=== PATIENT | male | born 1995 | race Caucasian/White ===

== ENCOUNTER 2017-04-29 02:20 | Emergency (ER) | payer OTHER ==
[~2017-04-29] VITALS: Ht 170.2 cm; Wt 74.8 kg
[2017-04-29 02:25] VITALS: BP 117/75
--- NOTE | 2017-04-29 02:31 | NUR ---
AMBULATED TO ER BED 7
--- NOTE | 2017-04-29 03:01 | NUR ---
Patient being evaluated by at bedside.
--- NOTE | 2017-04-29 03:02 | NUR ---
22Y/M PATIENT PRESENTS TO ED WITH C/O CHEST PAIN X 1WK . PT STATES PAIN TO CHEST AND RADIATES TO LOWER BACK. NO MEDICAL HX. . DENIES N/V/D; SKIN IS PINK/WARM/DRY; AAOX4 WITH EVEN AND STEADY GAIT; LUNGS CLEAR BL; HR EVEN AND REGULAR; PT DENIES ANY FEVER, CP, SOB, OR COUGH AT THIS TIME; PATIENT STATES PAIN OF 7/10 AT THIS TIME; VSS; PATIENT POSITIONED FOR COMFORT; HOB ELEVATED; BEDRAILS UP X2; BED DOWN. ER MD MADE AWARE OF PT STATUS.
[2017-04-29] MEDS ORDERED: KETOROLAC 30 MG/ML VIAL IM ONE (03:05)
[2017-04-29] MEDS ORDERED: ONDANSETRON 4 MG ODT PO ONE (03:05)
[2017-04-29] MEDS ORDERED: ACETAMINOPHEN/CODEINE 300/30MG 1 TAB PO ONE (03:05)
[2017-04-29 05:14] VITALS: BP 117/75
--- NOTE | 2017-04-29 05:14 | NUR ---
Patient discharged with v/s stable. Written and verbal after care instructions given and explained. Patient alert, oriented and verbalized understanding of instructions. Ambulatory with steady gait. All questions addressed prior to discharge. ID band removed. Patient advised to follow up with PMD. Rx of TYLENOL WITH CODEINE, NAPROSYN AND ZOFRAN given. Patient educated on indication of medication including possible reaction and side effects. Opportunity to ask questions provided and answered.
== END 2017-04-29 05:14 | disposition home or self-care (01) ==
LOC: MED 02:20
DX: M79.1 Myalgia (principal); R10.10 Upper abdominal pain, unspecified; Z90.89 Acquired absence of other organs
CPT/HCPCS: 74176; 81002; 96372; 99284; J1885; S0119

== ENCOUNTER 2018-04-29 22:42 | Emergency (ER) | payer OTHER ==
[~2018-04-29] VITALS: Ht 170.2 cm; Wt 76.7 kg
[2018-04-29 23:09] VITALS: BP 118/75
[2018-04-29] MEDS ORDERED: IBUPROFEN 800 MG TAB PO ONE (23:55)
[2018-04-29] MEDS ORDERED: AMOXICILLIN 500 MG CAP PO ONE (23:55)
[2018-04-30 00:30] VITALS: BP 118/70
== END 2018-04-30 00:30 | disposition home or self-care (01) ==
LOC: MED 22:42
DX: J02.9 Acute pharyngitis, unspecified (principal); M79.1 Myalgia; R50.9 Fever, unspecified
CPT/HCPCS: 99283

== ENCOUNTER 2018-11-05 19:51 | Emergency (ER) | payer OTHER ==
[~2018-11-05] VITALS: Ht 170.2 cm; Wt 74.4 kg
[2018-11-05 20:19] VITALS: BP 123/88
--- NOTE | 2018-11-05 20:22 | NUR ---
PT AMBULATED TO LOBBY WITH VSS.
--- NOTE | 2018-11-05 21:06 | NUR ---
PT TO ER BED 11
--- NOTE | 2018-11-05 21:12 | NUR ---
PATIENT PRESENTS TO ED WITH HEADACHE. PT C/O LEFT EAR PAIN, RADIATING TO LEFT EYE AND POSTERIOR TO LEFT SIDE OF THE HEAD. DENIES N/V/D; SKIN IS PINK/WARM/DRY; AAOX4 WITH EVEN AND STEADY GAIT; LUNGS CLEAR BL; HR EVEN AND REGULAR; PT DENIES ANY FEVER, CP, SOB, OR COUGH AT THIS TIME; PATIENT STATES PAIN OF 6/10 AT THIS TIME; VSS; PATIENT POSITIONED FOR COMFORT; HOB ELEVATED; BEDRAILS UP X1; BED DOWN. ER MD MADE AWARE OF PT STATUS. PMH: DENIES RX: DENIES
[2018-11-05] MEDS ORDERED: KETOROLAC 30 MG/ML VIAL IM ONE (23:10)
--- NOTE | 2018-11-05 23:13 | NUR ---
TO CT VIA WC
--- NOTE | 2018-11-05 23:22 | NUR ---
PT BACK FROM CT
[2018-11-06 00:24] VITALS: BP 122/76
--- NOTE | 2018-11-06 00:25 | NUR ---
Patient discharged with v/s stable. Written and verbal after care instructions given and explained. Patient alert, oriented and verbalized understanding of instructions. Ambulatory with steady gait. All questions addressed prior to discharge. ID band removed. Patient advised to follow up with PMD. Rx of NAPROSYN, AMOXICILLIN given. Patient educated on indication of medication including possible reaction and side effects. Opportunity to ask questions provided and answered.
== END 2018-11-06 00:24 | disposition home or self-care (01) ==
LOC: MED 19:51
DX: R51 Headache (principal); J02.9 Acute pharyngitis, unspecified; H57.89 Other specified disorders of eye and adnexa; Z90.49 Acquired absence of other specified parts of digestive tract
CPT/HCPCS: 70450; 96372; 99284; J1885

== ENCOUNTER 2019-05-15 17:00 | Emergency (ER) | payer BC, OTHER ==
[~2019-05-15] VITALS: Ht 170.2 cm; Wt 80.3 kg
[2019-05-15 17:03] VITALS: BP 121/64
--- NOTE | 2019-05-15 17:11 | NUR ---
PT AMBULATED TO ER BED 08
--- NOTE | 2019-05-15 17:20 | NUR ---
24M C/O NAUSEA AND EPIGASTRIC PAIN RADIATING TO LUQ/LLQ 03/23 X5 DAYS. PAIN COMES AND GOES. DENIES V/D. LBM 05/15/19, SOFT. PT DENIES TAKING HOME MEDICATIONS FOR PAIN RELIEF. ACTIVE BS IN ALL QUADRANTS. PT APPEARS COMFORTABLE AT THIS TIME. HX: NONE RX: NONE
--- NOTE | 2019-05-15 17:20 | NUR ---
Note undone in EDM - 05/15/19 at 1757 by [email or web address] 24M C/O NAUSEA AND EPIGASTRIC PAIN RADIATING TO LUQ/LLQ 6/10 X5 DAYS. PAIN COMES AND GOES. DENIES V/D. LBM 05/15/19, SOFT. PT DENIES TAKING HOME MEDICATIONS FOR PAIN RELIEF. ACTIVE BS IN ALL QUADRANTS. PT APPEARS COMFORTABLE AT THIS TIME. HX: NONE RX: NONE
--- NOTE | 2019-05-15 17:23 | NUR ---
XRAY AT BEDSIDE
[2019-05-15] MEDS ORDERED: DICYCLOMINE HCL LIQUID 20 MG, ALUMINUM HYD/MAG/SIMETHICONE 30 ML, LIDOCAINE VISCOUS 2% ... PO ONE ×3 (17:30)
[2019-05-15 18:55] LABS: BASOPHILS # (AUTO) 0.1 K/uL (0.00-0.22); BASOPHILS % (AUTO) 0.9 % (0.0-2.0); EOSINOPHILS # (AUTO) 0.2 K/uL (0-0.4); EOSINOPHILS % (AUTO) 2.5 % (0.0-4.0); HEMATOCRIT 52.6 % (36-52); HEMOGLOBIN 17.8 g/dL (12.0-18.0); LYMPHOCYTES # (AUTO) 1.7 K/uL (2.0-11.5); LYMPHOCYTES % (AUTO) 25.5 % (20.5-51.1); MEAN CORPUSCULAR HEMOGLOBIN 31 pg (27-31); MEAN CORPUSCULAR HGB CONC 34 g/dL (33-37); MEAN CORPUSCULAR VOLUME 90.2 fL (80-94); MONOCYTES # (AUTO) 0.8 K/uL (0.8-1.0); MONOCYTES % (AUTO) 11.7 % (1.7-9.3); NEUTROPHILS % (AUTO) 59.4 % (42.2-75.2); PLATELET COUNT (AUTO) 159 K/uL (140-450); RED BLOOD CELL COUNT(AUTO) 5.83 MIL/uL (4.20-6.10); RED CELL DISTRIBUTION WIDTH 13.8 % (11.6-13.7); WHITE BLOOD COUNT (AUTO) 6.8 K/uL (4.8-10.8)
[2019-05-15 19:05] LABS: CREATININE 0.9 mg/dL (0.7-1.3)
[2019-05-15 19:11] LABS: TOTAL BILIRUBIN 0.6 mg/dL (0.0-1.0)
--- NOTE | 2019-05-15 19:13 | NUR ---
BEDSIDE REPORT RECEIVED FROM RANJANA TERRY. ASSUMED CARE AT THIS TIME.
--- NOTE | 2019-05-15 19:19 | NUR ---
ENDORSED PATIENT TO ALEXANDER CHILEL IN STABLE CONDITION. PT DENIES PAIN AND DISCOMFORT AT THIS TIME
--- NOTE | 2019-05-15 19:30 | NUR ---
US AT BEDSIDE
[2019-05-15 20:04] VITALS: BP 120/79
--- NOTE | 2019-05-15 20:05 | NUR ---
PT LAYING DOWN, VSS. BED IN LOWEST POSTION. WILL CONTINUE TO MONITOR.
--- NOTE | 2019-05-15 22:32 | NUR ---
Patient discharged with v/s stable. Written and verbal after care instructions given and explained by Dr. Dasilva. Ambulatory with steady gait. All questions addressed prior to discharge. ID band removed. Patient advised to follow up with PMD. Rx of Pepcid given. Patient educated on indication of medication including possible reaction and side effects. Opportunity to ask questions provided and answered.
== END 2019-05-15 22:32 | disposition home or self-care (01) ==
LOC: MED 17:00
DX: K29.70 Gastritis, unspecified, without bleeding (principal)
CPT/HCPCS: 36415; 74018; 76705; 80053; 83690; 85025; 99284; Q0092

== ENCOUNTER 2020-07-02 19:40 | Emergency (ER) | payer BC, OTHER ==
[~2020-07-02] VITALS: Ht 170.2 cm; Wt 77.1 kg
[2020-07-02 19:53] VITALS: BP 127/80
--- NOTE | 2020-07-02 19:57 | NUR ---
PT AMBULATED TO BED 07 WITH STEADY GAIT.
--- NOTE | 2020-07-02 20:18 | NUR ---
PT HAS BEEN HAVING RLQ PAIN RADIATING INTO R TESTICLE AND R LOWER BACK FOR 1 MONTH NOW. ABD TENDER UPON PALPATION, + NAUSEA, NO VOMITING OR DIARRHEA. DENIES PAIN WITH URINATION. PT DENIES ANY SWELLING TO TESTICLE. AFEBRILE, DECREASED APPETITE. RATES PAIN 10/10 SHARP, STABBING PAIN. NORMAL BM, LAST BM TODAY. BED IN LOWEST POSITION AND SIDERAIL UP X 1. NKA NO HX
--- NOTE | 2020-07-02 20:55 | NUR ---
PT PROVIDED WITH UA CUP FOR URINE SPECIMEN, AMBULATED TO BATHROOM WITH STEADY GAIT
--- NOTE | 2020-07-02 21:03 | NUR ---
UA DIP DONE AND SHOWN TO GERALD CASPER
--- NOTE | 2020-07-02 21:15 | NUR ---
Vaibhav cooney in [facility], [place] - 07/02/20 at 2117 by [email or web address] WAITING FOR ULTRASOUND AT THIS TIME
--- NOTE | 2020-07-02 21:16 | NUR ---
ULTRASOUND AT BEDSIDE AT THIS TIME
--- NOTE | 2020-07-02 21:32 | NUR ---
PT RESTING COMFORTABLY AT THIS TIME. WAITING FOR ULTRASOUND RESULTS.
[2020-07-02 22:04] VITALS: BP 124/78
== END 2020-07-02 22:05 | disposition home or self-care (01) ==
LOC: MED 19:40
DX: N50.812 Left testicular pain (principal); Z88.6 Allergy status to analgesic agent
CPT/HCPCS: 76870; 81002; 99284; Q0092